=== PATIENT | female | born 1935 | race Caucasian/White ===

== ENCOUNTER 2017-06-26 12:54 | Emergency (ER) | payer MEDICARE | END 2017-06-26 13:42 | disposition left against medical advice (07) | LOC: E/R 12:54 | DX: Z53.21 Procedure and treatment not carried out due to patient leaving prior to being seen by health care provider (principal) ==

== ENCOUNTER 2017-07-26 08:36 | Inpatient (IN) | payer MEDICARE, OTHER ==
[2017-07-26] MEDS: SOD CHLORIDE 0.9% 1,000 ML IV (10:34)
[2017-07-26 11:48] LABS: ABNORMAL IP MESSAGE 1; HEMATOCRIT 35.7 % (37.0-47.0); HEMOGLOBIN 12.3 g/dl (12.0-16.0); MEAN CORPUSCULAR HEMOGLOBIN 29.9 pg (29.0-33.0); MEAN CORPUSCULAR HGB CONC 34.5 g/dl (32.0-37.0); MEAN CORPUSCULAR VOLUME 86.7 fl (82.0-101.0); MEAN PLATELET VOLUME 9.7 fl (7.4-10.4); PLATELET COUNT 392 10^3/UL (140-415); RED BLOOD COUNT 4.12 10^6/ul (4.20-5.40); RED CELL DISTRIBUTION WIDTH 13.2 % (11.5-14.5)
[2017-07-26 11:59] LABS: ADD MAN DIFF? YES; POSITIVE DIFF @See below
[2017-07-26 12:04] LABS: INR 0.97
[2017-07-26 12:05] LABS: PARTIAL THROMBOPLASTIN TIME 26.6 Sec (25.0-35.0)
[2017-07-26 12:14] LABS: ALANINE AMINOTRANSFERASE 34 IU/L (13-69); ALBUMIN 3.1 g/dl (3.3-4.9); ALKALINE PHOSPHATASE 75 IU/L (42-121); ANION GAP 12 (8-16); ASPARTATE AMINO TRANSFERASE 23 IU/L (15-46); BILIRUBIN,INDIRECT 0.1 mg/dl (0-1.1); BILIRUBIN,TOTAL 0.1 mg/dl (0.2-1.3); BLOOD UREA NITROGEN 17 mg/dl (7-20); CALCIUM 8.6 mg/dl (8.4-10.2); CARBON DIOXIDE 26 mmol/L (21-31); CHLORIDE 99 mmol/L (97-110); CREATININE 0.72 mg/dl (0.44-1.00); GLUCOSE 100 mg/dl (70-220); LIPASE 62 U/L (23-300); SODIUM 134 mmol/L (135-144); TOTAL PROTEIN 5.9 g/dl (6.1-8.1)
[2017-07-26 12:26] LABS: TROPONIN-I < 0.012 ng/ml (0.00-0.12)
[2017-07-26 13:20] LABS: BAND NEUTROPHILS #M 3.5 10^3/ul (0.0-0.6); BAND NEUTROPHILS % (M) 69 % (0-4); GIANT THROMBO% (M) 2 % (0-0); LYMPHOCYTES #M 0.3 10^3/ul (0.8-2.9); LYMPHOCYTES % (M) 6 % (15-51); MONOCYTE #M 0.5 10^3/ul (0.3-0.9); MONOCYTES % (M) 11 % (0-11); PLATELET ESTIMATE NORMAL; PLATELET MORPHOLOGY COMMENT @See below; POIKILOCYTOSIS 1+ (0-0); PROMYELOCYTES #M 0.1 10^3/ul (0-0); PROMYELOCYTES % (M) 2 % (0-0); REACTIVE LYMPHOCYTES #M 0.3 10^3/ul (0.0-0.0); REACTIVE LYMPHOCYTES% (M) 6 % (0-0); SEG NEUT #M 0.5 10^3/ul (1.6-7.5); SEGMENTED NEUTROPHILS (M) % 6 % (39-77); SMUDGE%M 5 % (0-0)
[2017-07-26] MEDS ORDERED: ACETAMINOPHEN 325 MG TAB PO (13:30)
[2017-07-26] MEDS ORDERED: ONDANSETRON 4 MG INJ IV (13:30)
[2017-07-26] MEDS: POTASSIUM CHLORIDE 50 ML IVPB (14:59)
[2017-07-26] MEDS ORDERED: NACL 0.9% 3 ML SYG IV (16:00)
[2017-07-26] MEDS: DEXTROSE 5%-0.45% NACL 1,000 ML IV (16:57)
[2017-07-26] MEDS: LORAZEPAM 2 MG INJ IV (18:34)
[2017-07-27] MEDS: morphine 2 MG INJ IV (02:09)
[2017-07-27] MEDS: PANTOPRAZOLE 40 MG INJ IV (05:33)
[2017-07-27 06:23] LABS: HEMATOCRIT 36.4 % (37.0-47.0); HEMOGLOBIN 12.4 g/dl (12.0-16.0); MEAN CORPUSCULAR HEMOGLOBIN 29.8 pg (29.0-33.0); MEAN CORPUSCULAR HGB CONC 34.1 g/dl (32.0-37.0); MEAN CORPUSCULAR VOLUME 87.5 fl (82.0-101.0); MEAN PLATELET VOLUME 9.8 fl (7.4-10.4); PLATELET COUNT 433 10^3/UL (140-415); RED BLOOD COUNT 4.16 10^6/ul (4.20-5.40); RED CELL DISTRIBUTION WIDTH 13.2 % (11.5-14.5)
[2017-07-27 06:23] LABS: WHITE BLOOD COUNT 7.7 10^3/ul (4.8-10.8)
[2017-07-27 06:37] LABS: POSITIVE DIFF @See below
[2017-07-27 06:38] LABS: ADD MAN DIFF? YES
[2017-07-27 06:59] LABS: ALANINE AMINOTRANSFERASE 32 IU/L (13-69); ALBUMIN 3.1 g/dl (3.3-4.9); ALBUMIN/GLOBULIN RATIO 1.14; ALKALINE PHOSPHATASE 73 IU/L (42-121); ANION GAP 13 (8-16); ASPARTATE AMINO TRANSFERASE 27 IU/L (15-46); BILIRUBIN,INDIRECT 0.1 mg/dl (0-1.1); BILIRUBIN,TOTAL 0.1 mg/dl (0.2-1.3); BLOOD UREA NITROGEN 12 mg/dl (7-20); CALCIUM 8.2 mg/dl (8.4-10.2); CARBON DIOXIDE 26 mmol/L (21-31); CHLORIDE 101 mmol/L (97-110); GLUCOSE 115 mg/dl (70-220); MAGNESIUM 1.6 mg/dl (1.7-2.5); PHOSPHORUS 1.7 mg/dl (2.5-4.9); POTASSIUM 3.2 mmol/L (3.5-5.1); SODIUM 137 mmol/L (135-144); TOTAL PROTEIN 5.8 g/dl (6.1-8.1)
[2017-07-27 07:22] LABS: CARCINOEMBRYONIC ANTIGEN 6.1 ng/ml (0.0-5.0)
[2017-07-27] MEDS: DEXTROSE 5%-0.45% NACL 1,000 ML IV ×2 (08:14→10:24)
[2017-07-27] MEDS: ENOXAPARIN 40 MG/0.4 ML SYG SC (08:15)
[2017-07-27] MEDS ORDERED: POTASSIUM CHLORIDE 50 ML IVPB (09:30)
[2017-07-27 10:20] LABS: ANISOCYTOSIS 1+ (0-0); BAND NEUTROPHILS #M 2.3 10^3/ul (0.0-0.6); BAND NEUTROPHILS % (M) 30 % (0-4); BURR CELLS 1+ (0-0); EOSINOPHILS % (M) 1 % (0-7); GIANT THROMBO% (M) 1 % (0-0); LYMPHOCYTES #M 2.6 10^3/ul (0.8-2.9); LYMPHOCYTES % (M) 34 % (15-51); METAMYELOCYTES %M 1 % (0-0); MONOCYTE #M 0.9 10^3/ul (0.3-0.9); MONOCYTES % (M) 12 % (0-11); MYELOCYTES #M 0.1 10^3/ul (0.0-0.0); MYELOCYTES % (M) 2 % (0-0); OVALOCYTES 2+ (0-0); PLATELET ESTIMATE NORMAL; POIKILOCYTOSIS 1+ (0-0); POLYCHROMASIA 1+ (0-0); REACTIVE LYMPHOCYTES #M 0.1 10^3/ul (0.0-0.0); REACTIVE LYMPHOCYTES% (M) 2 % (0-0); SEG NEUT #M 1.6 10^3/ul (1.6-7.5); SEGMENTED NEUTROPHILS (M) % 18 % (39-77); SMUDGE%M 13 % (0-0)
[2017-07-27] MEDS: MAGNESIUM SULFATE 2 GM/50 ML 50 ML IVPB (10:53)
[2017-07-27] MEDS: LORAZEPAM 2 MG INJ IV (12:40)
[2017-07-27] MEDS: POTASSIUM CHLORIDE 40 MEQ in DEXTROSE 5% 250 ML IV (13:14)
[2017-07-28] MEDS: morphine 2 MG INJ IV ×3 (00:18→20:05)
[2017-07-28 05:38] LABS: WHITE BLOOD COUNT 6.8 10^3/ul (4.8-10.8)
[2017-07-28 05:38] LABS: HEMATOCRIT 33.8 % (37.0-47.0); MEAN CORPUSCULAR HEMOGLOBIN 30.2 pg (29.0-33.0); MEAN CORPUSCULAR HGB CONC 35.5 g/dl (32.0-37.0); MEAN CORPUSCULAR VOLUME 85.1 fl (82.0-101.0); MEAN PLATELET VOLUME 9.4 fl (7.4-10.4); PLATELET COUNT 386 10^3/UL (140-415); RED BLOOD COUNT 3.97 10^6/ul (4.20-5.40); RED CELL DISTRIBUTION WIDTH 12.8 % (11.5-14.5)
[2017-07-28 06:13] LABS: POSITIVE DIFF @See below
[2017-07-28 06:14] LABS: ADD MAN DIFF? YES
[2017-07-28 06:16] LABS: BLOOD UREA NITROGEN 12 mg/dl (7-20); CALCIUM 7.2 mg/dl (8.4-10.2); CARBON DIOXIDE 25 mmol/L (21-31); CHLORIDE 100 mmol/L (97-110); CREATININE 0.55 mg/dl (0.44-1.00); GLUCOSE 115 mg/dl (70-220); SODIUM 131 mmol/L (135-144)
[2017-07-28 06:17] LABS: MAGNESIUM 1.7 mg/dl (1.7-2.5)
[2017-07-28 06:17] LABS: PHOSPHORUS 1.9 mg/dl (2.5-4.9)
[2017-07-28] MEDS: PANTOPRAZOLE 40 MG INJ IV (06:21)
[2017-07-28 06:53] LABS: ANION GAP 9 (8-16)
[2017-07-28 07:04] LABS: POTASSIUM 2.7 mmol/L (3.5-5.1)
[2017-07-28 07:07] LABS: WHITE BLOOD COUNT 5.2 10^3/ul (4.8-10.8)
[2017-07-28 07:36] LABS: BAND NEUTROPHILS #M 2.5 10^3/ul (0.0-0.6); BAND NEUTROPHILS % (M) 37 % (0-4); EOSINOPHILS % (M) 1 % (0-7); GIANT THROMBO% (M) 1 % (0-0); LYMPHOCYTES #M 0.8 10^3/ul (0.8-2.9); LYMPHOCYTES % (M) 13 % (15-51); MONOCYTE #M 0.5 10^3/ul (0.3-0.9); MONOCYTES % (M) 8 % (0-11); PLATELET ESTIMATE NORMAL; REACTIVE LYMPHOCYTES #M 0.1 10^3/ul (0.0-0.0); REACTIVE LYMPHOCYTES% (M) 2 % (0-0); SEG NEUT #M 2.8 10^3/ul (1.6-7.5); SEGMENTED NEUTROPHILS (M) % 39 % (39-77); SMUDGE%M 6 % (0-0)
[2017-07-28] MEDS: ENOXAPARIN 40 MG/0.4 ML SYG SC (08:21)
[2017-07-28] MEDS: POTASSIUM PHOSPHATE 15 MM in SOD CHLORIDE 0.9% 250 ML IVPB (08:54)
[2017-07-28] MEDS: DIATR MEGLU/DIATRIZOATE SODIUM 120 ML BTL (12:37)
[2017-07-28 17:21] LABS: ANION GAP 14 (8-16); BLOOD UREA NITROGEN 16 mg/dl (7-20); CALCIUM 8.1 mg/dl (8.4-10.2); CARBON DIOXIDE 24 mmol/L (21-31); CHLORIDE 100 mmol/L (97-110); CREATININE 0.53 mg/dl (0.44-1.00); GLUCOSE 134 mg/dl (70-220); POTASSIUM 3.1 mmol/L (3.5-5.1); SODIUM 135 mmol/L (135-144)
[2017-07-28] MEDS: DEXTROSE 5%-0.45% NACL 1,000 ML IV (17:26)
[2017-07-28] MEDS: CALCIUM GLUCONATE 10% 1 GM in DEXTROSE 5% 100 ML IVPB (17:26)
[2017-07-28 20:10] LABS: ALANINE AMINOTRANSFERASE 31 IU/L (13-69); ALBUMIN 2.8 g/dl (3.3-4.9); ALBUMIN/GLOBULIN RATIO 1.07; ALKALINE PHOSPHATASE 68 IU/L (42-121); ANION GAP 12 (8-16); ASPARTATE AMINO TRANSFERASE 28 IU/L (15-46); BILIRUBIN,INDIRECT 0.1 mg/dl (0-1.1); BILIRUBIN,TOTAL 0.1 mg/dl (0.2-1.3); BLOOD UREA NITROGEN 16 mg/dl (7-20); CALCIUM 8.4 mg/dl (8.4-10.2); CARBON DIOXIDE 26 mmol/L (21-31); CHLORIDE 99 mmol/L (97-110); CREATININE 0.58 mg/dl (0.44-1.00); GLUCOSE 122 mg/dl (70-220); POTASSIUM 3.4 mmol/L (3.5-5.1); SODIUM 134 mmol/L (135-144); TOTAL PROTEIN 5.4 g/dl (6.1-8.1); TRIGLYCERIDES 72 mg/dl (0-149)
[2017-07-28 20:17] LABS: PREALBUMIN 5.8 mg/dl (17.6-36.0)
[2017-07-28] MEDS: TPN 1,000 ML IV (20:43)
[2017-07-29] MEDS: ONDANSETRON 4 MG INJ IV (04:43)
[2017-07-29 05:31] LABS: WHITE BLOOD COUNT 12.8 10^3/ul (4.8-10.8)
[2017-07-29 05:31] LABS: HEMATOCRIT 37.3 % (37.0-47.0); MEAN CORPUSCULAR HGB CONC 34.9 g/dl (32.0-37.0); MEAN CORPUSCULAR VOLUME 85.9 fl (82.0-101.0); MEAN PLATELET VOLUME 9.3 fl (7.4-10.4); PLATELET COUNT 436 10^3/UL (140-415); RED BLOOD COUNT 4.34 10^6/ul (4.20-5.40)
[2017-07-29 05:49] LABS: PHOSPHORUS 2.9 mg/dl (2.5-4.9)
[2017-07-29 05:49] LABS: MAGNESIUM 1.6 mg/dl (1.7-2.5)
[2017-07-29 05:59] LABS: ANION GAP 13 (8-16); BLOOD UREA NITROGEN 18 mg/dl (7-20); CARBON DIOXIDE 27 mmol/L (21-31); CHLORIDE 98 mmol/L (97-110); CREATININE 0.61 mg/dl (0.44-1.00); GLUCOSE 183 mg/dl (70-220); POTASSIUM 3.1 mmol/L (3.5-5.1); SODIUM 135 mmol/L (135-144)
[2017-07-29] MEDS: ACCU-CHEK XX ×4 (06:00→18:00)
[2017-07-29 06:03] LABS: ADD MAN DIFF? YES; POSITIVE DIFF @See below
[2017-07-29] MEDS: PANTOPRAZOLE 40 MG INJ IV (06:15)
[2017-07-29] MEDS ORDERED: POTASSIUM CHLORIDE 50 ML IVPB (07:00)
[2017-07-29] MEDS: POTASSIUM CHLORIDE 40 MEQ in SOD CHLORIDE 0.9% 250 ML IV (07:37)
[2017-07-29 08:35] LABS: BAND NEUTROPHILS #M 6.1 10^3/ul (0.0-0.6); BAND NEUTROPHILS % (M) 48 % (0-4); BURR CELLS 1+ (0-0); LYMPHOCYTES #M 0.6 10^3/ul (0.8-2.9); LYMPHOCYTES % (M) 5 % (15-51); MONOCYTE #M 1.6 10^3/ul (0.3-0.9); MONOCYTES % (M) 13 % (0-11); PLATELET ESTIMATE NORMAL; POIKILOCYTOSIS 2+ (0-0); SEG NEUT #M 5.1 10^3/ul (1.6-7.5); SEGMENTED NEUTROPHILS (M) % 34 % (39-77); SMUDGE%M 2 % (0-0)
[2017-07-29] MEDS: ENOXAPARIN 40 MG/0.4 ML SYG SC (09:31)
[2017-07-29] MEDS: DEXTROSE 5%-0.45% NACL 1,000 ML IV ×2 (10:28→19:02)
[2017-07-29] MEDS: morphine 2 MG INJ IV (12:18)
[2017-07-29] MEDS: MAGNESIUM SULFATE 2 GM/50 ML 50 ML IVPB (12:19)
[2017-07-29] MEDS: TPN 1,000 ML IV (20:44)
[2017-07-30] MEDS: morphine 2 MG INJ IV (04:02)
[2017-07-30] MEDS: PANTOPRAZOLE 40 MG INJ IV (05:42)
[2017-07-30 06:10] LABS: ANION GAP 10 (8-16); BLOOD UREA NITROGEN 20 mg/dl (7-20); CALCIUM 8.1 mg/dl (8.4-10.2); CARBON DIOXIDE 26 mmol/L (21-31); CHLORIDE 101 mmol/L (97-110); CREATININE 0.59 mg/dl (0.44-1.00); GLUCOSE 160 mg/dl (70-220); PHOSPHORUS 1.9 mg/dl (2.5-4.9); POTASSIUM 4.4 mmol/L (3.5-5.1); SODIUM 133 mmol/L (135-144)
[2017-07-30] MEDS: ACCU-CHEK XX ×2 (06:35→18:29)
[2017-07-30] MEDS: ENOXAPARIN 40 MG/0.4 ML SYG SC (09:19)
[2017-07-30] MEDS: SODIUM PHOSPHATE 15 MMOL in SOD CHLORIDE 0.9% 250 ML IV (10:59)
[2017-07-30] MEDS: CLONIDINE 0.1 MG/24 HR PATCH TRANSDERM (11:00)
[2017-07-30] MEDS: TPN 1,000 ML IV (16:24)
[2017-07-30] MEDS: METOCLOPRAMIDE 10 MG INJ IV (17:56)
[2017-07-30] MEDS: SOD CHLORIDE 0.9% 100 ML (20:15)
[2017-07-30] MEDS: IOHEXOL 300MG/ML 150 ML BTL (20:15)
[2017-07-31] MEDS: PANTOPRAZOLE 40 MG INJ IV (05:36)
[2017-07-31] MEDS: ACCU-CHEK XX ×2 (05:42→18:00)
[2017-07-31 06:56] LABS: ANION GAP 12 (8-16); BLOOD UREA NITROGEN 18 mg/dl (7-20); CALCIUM 7.7 mg/dl (8.4-10.2); CARBON DIOXIDE 26 mmol/L (21-31); CHLORIDE 101 mmol/L (97-110); CREATININE 0.53 mg/dl (0.44-1.00); GLUCOSE 138 mg/dl (70-220); MAGNESIUM 1.9 mg/dl (1.7-2.5); PHOSPHORUS 2.8 mg/dl (2.5-4.9); POTASSIUM 3.4 mmol/L (3.5-5.1); SODIUM 136 mmol/L (135-144)
[2017-07-31] MEDS: ENOXAPARIN 40 MG/0.4 ML SYG SC (09:54)
[2017-07-31] MEDS: DIATR MEGLU/DIATRIZOATE SODIUM 120 ML BTL (11:55)
[2017-07-31] MEDS: FAT EMULSION 20% 250 ML IV (17:13)
[2017-07-31] MEDS: POTASSIUM CHLORIDE 20 MEQ in DEXTROSE 5% 250 ML IVPB (18:04)
[2017-07-31] MEDS: TPN 1,000 ML IV (19:47)
[2017-07-31] MEDS: morphine 2 MG INJ IV (21:38)
[2017-08-01] MEDS: ACCU-CHEK XX ×2 (05:08→18:58)
[2017-08-01] MEDS: PANTOPRAZOLE 40 MG INJ IV (05:08)
[2017-08-01 05:36] LABS: HEMATOCRIT 33.6 % (37.0-47.0); HEMOGLOBIN 11.5 g/dl (12.0-16.0); MEAN CORPUSCULAR HEMOGLOBIN 29.3 pg (29.0-33.0); MEAN CORPUSCULAR HGB CONC 34.2 g/dl (32.0-37.0); MEAN CORPUSCULAR VOLUME 85.5 fl (82.0-101.0); PLATELET COUNT 294 10^3/UL (140-415); RED BLOOD COUNT 3.93 10^6/ul (4.20-5.40); RED CELL DISTRIBUTION WIDTH 13.2 % (11.5-14.5)
[2017-08-01 05:36] LABS: WHITE BLOOD COUNT 9.9 10^3/ul (4.8-10.8)
[2017-08-01 05:48] LABS: POSITIVE DIFF @See below
[2017-08-01 05:53] LABS: ADD MAN DIFF? YES
[2017-08-01 05:59] LABS: ALANINE AMINOTRANSFERASE 25 IU/L (13-69); ALBUMIN 2.5 g/dl (3.3-4.9); ALBUMIN/GLOBULIN RATIO 0.89; ALKALINE PHOSPHATASE 67 IU/L (42-121); ANION GAP 7 (8-16); ASPARTATE AMINO TRANSFERASE 18 IU/L (15-46); BLOOD UREA NITROGEN 15 mg/dl (7-20); CALCIUM 7.8 mg/dl (8.4-10.2); CARBON DIOXIDE 26 mmol/L (21-31); CHLORIDE 101 mmol/L (97-110); CREATININE 0.46 mg/dl (0.44-1.00); GLUCOSE 128 mg/dl (70-220); POTASSIUM 3.4 mmol/L (3.5-5.1); SODIUM 131 mmol/L (135-144); TOTAL PROTEIN 5.3 g/dl (6.1-8.1)
[2017-08-01 06:03] LABS: MAGNESIUM 1.7 mg/dl (1.7-2.5)
[2017-08-01 06:03] LABS: PHOSPHORUS 2.4 mg/dl (2.5-4.9)
[2017-08-01] MEDS: hydrALAzine 20 MG INJ IV ×2 (08:57→16:40)
[2017-08-01] MEDS: ENOXAPARIN 40 MG/0.4 ML SYG SC (09:00)
[2017-08-01 09:08] LABS: BAND NEUTROPHILS #M 2.7 10^3/ul (0.0-0.6); BAND NEUTROPHILS % (M) 28 % (0-4); LYMPHOCYTES #M 0.5 10^3/ul (0.8-2.9); LYMPHOCYTES % (M) 6 % (15-51); MONOCYTE #M 0.6 10^3/ul (0.3-0.9); MONOCYTES % (M) 7 % (0-11); PLATELET ESTIMATE NORMAL; POIKILOCYTOSIS 1+ (0-0); SEG NEUT #M 6.1 10^3/ul (1.6-7.5); SEGMENTED NEUTROPHILS (M) % 59 % (39-77); SMUDGE%M 6 % (0-0)
[2017-08-01] MEDS ORDERED: POTASSIUM CHLORIDE 50 ML IVPB (11:00)
[2017-08-01] MEDS: TPN 1,000 ML IV (12:36)
[2017-08-01] MEDS: POTASSIUM CHLORIDE 40 MEQ in DEXTROSE 5% 250 ML IV (14:19)
[2017-08-01] MEDS: FAT EMULSION 20% 250 ML IV (16:22)
[2017-08-01] MEDS: morphine 2 MG INJ IV (21:48)
[2017-08-02] MEDS: morphine 2 MG INJ IV (02:16)
[2017-08-02] MEDS: TPN 1,000 ML IV ×3 (03:25→21:05)
[2017-08-02] MEDS: PANTOPRAZOLE 40 MG INJ IV (05:37)
[2017-08-02] MEDS: ACCU-CHEK XX ×2 (05:42→18:08)
[2017-08-02 06:32] LABS: ANION GAP 10 (8-16); BLOOD UREA NITROGEN 16 mg/dl (7-20); CALCIUM 7.5 mg/dl (8.4-10.2); CARBON DIOXIDE 23 mmol/L (21-31); CHLORIDE 103 mmol/L (97-110); CREATININE 0.46 mg/dl (0.44-1.00); GLUCOSE 131 mg/dl (70-220); MAGNESIUM 1.7 mg/dl (1.7-2.5); PHOSPHORUS 2.3 mg/dl (2.5-4.9); POTASSIUM 3.5 mmol/L (3.5-5.1); SODIUM 132 mmol/L (135-144)
[2017-08-02] MEDS: ENOXAPARIN 40 MG/0.4 ML SYG SC (08:18)
[2017-08-02] MEDS: hydrALAzine 20 MG INJ IV (08:21)
[2017-08-02] MEDS: FAT EMULSION 20% 250 ML IV (16:08)
[2017-08-02] MEDS: NA PHOSPHATE/BIPHOS 133 ML ENEMA PR ×2 (18:38→19:53)
[2017-08-03] MEDS: PANTOPRAZOLE 40 MG INJ IV (04:55)
[2017-08-03 05:34] LABS: HEMATOCRIT 30.1 % (37.0-47.0); HEMOGLOBIN 10.7 g/dl (12.0-16.0); MEAN CORPUSCULAR HEMOGLOBIN 29.9 pg (29.0-33.0); MEAN CORPUSCULAR HGB CONC 35.5 g/dl (32.0-37.0); MEAN CORPUSCULAR VOLUME 84.1 fl (82.0-101.0); MEAN PLATELET VOLUME 8.9 fl (7.4-10.4); PLATELET COUNT 245 10^3/UL (140-415); RED BLOOD COUNT 3.58 10^6/ul (4.20-5.40); RED CELL DISTRIBUTION WIDTH 13.2 % (11.5-14.5)
[2017-08-03 05:34] LABS: WHITE BLOOD COUNT 8.1 10^3/ul (4.8-10.8)
[2017-08-03 05:48] LABS: POSITIVE DIFF @See below
[2017-08-03 05:49] LABS: ADD MAN DIFF? YES
[2017-08-03] MEDS: ACCU-CHEK XX ×2 (06:00→18:40)
[2017-08-03 06:13] LABS: PHOSPHORUS 2.9 mg/dl (2.5-4.9)
[2017-08-03 06:13] LABS: MAGNESIUM 1.6 mg/dl (1.7-2.5)
[2017-08-03 06:15] LABS: ANION GAP 10 (8-16); BLOOD UREA NITROGEN 16 mg/dl (7-20); CALCIUM 7.7 mg/dl (8.4-10.2); CARBON DIOXIDE 25 mmol/L (21-31); CHLORIDE 100 mmol/L (97-110); CREATININE 0.48 mg/dl (0.44-1.00); GLUCOSE 144 mg/dl (70-220); POTASSIUM 3.2 mmol/L (3.5-5.1); SODIUM 132 mmol/L (135-144)
[2017-08-03 06:31] LABS: BASOPHILS % 0.2 % (0.0-2.0)
[2017-08-03 07:46] LABS: ANISOCYTOSIS 1+ (0-0); BAND NEUTROPHILS #M 2.1 10^3/ul (0.0-0.6); BAND NEUTROPHILS % (M) 26 % (0-4); BURR CELLS 1+ (0-0); LYMPHOCYTES #M 0.4 10^3/ul (0.8-2.9); LYMPHOCYTES % (M) 5 % (15-51); MONOCYTE #M 0.9 10^3/ul (0.3-0.9); MONOCYTES % (M) 12 % (0-11); MYELOCYTES % (M) 1 % (0-0); PLATELET ESTIMATE NORMAL; POIKILOCYTOSIS 1+ (0-0); POLYCHROMASIA 2+ (0-0); REACTIVE LYMPHOCYTES #M 0.1 10^3/ul (0.0-0.0); REACTIVE LYMPHOCYTES% (M) 2 % (0-0); SEG NEUT #M 4.5 10^3/ul (1.6-7.5); SEGMENTED NEUTROPHILS (M) % 54 % (39-77); SMUDGE%M 18 % (0-0)
[2017-08-03] MEDS: ENOXAPARIN 40 MG/0.4 ML SYG SC (10:07)
[2017-08-03] MEDS ORDERED: POTASSIUM CHLORIDE 50 ML IVPB (11:30)
[2017-08-03] MEDS: POTASSIUM CHLORIDE 100 ML IVPB ×2 (11:54→14:12)
[2017-08-03] MEDS: TPN 1,000 ML IV (12:05)
[2017-08-03] MEDS: NA PHOSPHATE/BIPHOS 133 ML ENEMA PR ×7 (15:34→18:26)
[2017-08-03] MEDS: FAT EMULSION 20% 250 ML IV (16:27)
[2017-08-04] MEDS: TPN 1,000 ML IV ×2 (05:23→22:30)
[2017-08-04 05:41] LABS: ALANINE AMINOTRANSFERASE 36 IU/L (13-69); ALBUMIN 2.5 g/dl (3.3-4.9); ALBUMIN/GLOBULIN RATIO 0.89; ALKALINE PHOSPHATASE 62 IU/L (42-121); ANION GAP 12 (8-16); ASPARTATE AMINO TRANSFERASE 21 IU/L (15-46); BLOOD UREA NITROGEN 16 mg/dl (7-20); CALCIUM 7.8 mg/dl (8.4-10.2); CARBON DIOXIDE 25 mmol/L (21-31); CHLORIDE 99 mmol/L (97-110); CREATININE 0.47 mg/dl (0.44-1.00); GLUCOSE 138 mg/dl (70-220); POTASSIUM 3.6 mmol/L (3.5-5.1); SODIUM 132 mmol/L (135-144); TOTAL PROTEIN 5.3 g/dl (6.1-8.1)
[2017-08-04 05:44] LABS: PREALBUMIN 11.6 mg/dl (17.6-36.0)
[2017-08-04] MEDS: PANTOPRAZOLE 40 MG INJ IV (05:47)
[2017-08-04] MEDS: ACCU-CHEK XX ×2 (06:05→17:27)
[2017-08-04] MEDS: ENOXAPARIN 40 MG/0.4 ML SYG SC (09:18)
[2017-08-04] MEDS: NA PHOSPHATE/BIPHOS 133 ML ENEMA PR ×6 (13:58→15:30)
[2017-08-04] MEDS: FAT EMULSION 20% 250 ML IV (16:18)
[2017-08-04] MEDS: morphine 2 MG INJ IV (19:04)
[2017-08-05] MEDS: ACCU-CHEK XX (06:00)
[2017-08-05] MEDS: PANTOPRAZOLE 40 MG INJ IV (06:53)
[2017-08-05] MEDS ORDERED: ALBUMIN HUMAN 5% 250 ML INJ (07:00)
[2017-08-05] MEDS ORDERED: SUCCINYLCHOLINE CHLORIDE 100 MG/5 ML SYG IV (07:00)
[2017-08-05] MEDS: ENOXAPARIN 40 MG/0.4 ML SYG SC (09:41)
[2017-08-05] MEDS ORDERED: IOHEXOL 300MG/ML 30 ML BTL (14:16)
[2017-08-05] MEDS ORDERED: FENTAnyl 50 MCG/ML VIAL (15:16)
[2017-08-05] MEDS ORDERED: PROPOFOL 20 ML ×2 (15:16→16:57)
[2017-08-05] MEDS ORDERED: ESMOLOL 10 ML (15:43)
[2017-08-05] MEDS ORDERED: PHENYLephrine (100 MCG/ML) 5ML SYG ×6 (15:58→20:07)
[2017-08-05] MEDS: FAT EMULSION 20% 250 ML IV (16:00)
[2017-08-05] MEDS: TPN 1,000 ML IV ×2 (16:00)
[2017-08-05] MEDS ORDERED: MIDAZOLAM 1 MG/ML 2 ML INJ (16:07)
[2017-08-05] MEDS ORDERED: LEVOFLOXACIN 500MG/D5W (PMX) 100 ML IVPB (17:00)
[2017-08-05] MEDS ORDERED: LABETALOL HCL 20MG INJ (17:17)
[2017-08-05] MEDS ORDERED: HYDROmorphONE (0.2 MG/ML) 10ML SYG IV ×3 (17:18→17:30)
[2017-08-05] MEDS ORDERED: PHENYLephrine 40 MG in DEXTROSE 5% 496 ML IV (17:28)
[2017-08-05] MEDS: HYDROmorphONE (0.2 MG/ML) 10ML SYG IV (18:10)
[2017-08-05] MEDS: LABETALOL HCL 20MG INJ IV (18:10)
[2017-08-05] MEDS ORDERED: ALBUMIN HUMAN 25% 200 ML (18:47)
[2017-08-05] MEDS ORDERED: PIPER-TAZO 3.375 GM IV (PMX) 100 ML (18:56)
[2017-08-05] MEDS: FLUCONAZOLE 400 MG/NS (PMX) 200 ML IVPB ×2 (19:30→23:00)
[2017-08-05 19:32] LABS: AADO2 Arterial 366.8 mmHg (7.0-24.0); Arterial Base Excess -6.1 mmol/L (-3.0-3); Arterial Blood Gas Oxygen Sat 99.2 mmHG (95.0-100.0); Arterial COHb 0.3 % (0.0-3.0); Arterial Fraction of Oxyhgb 98.8 % (93.0-99.0); Arterial HCO3 19.8 mmol/L (22.0-26.0); Arterial MetHb 0.1 % (0.0-1.5); Arterial Total Hemglobin 10.4 g/dl (12.0-18.0); Arterial pCO2 40.6 mmhg (35-45); Blood Gas Low PEEP Setting 0 cmH2O; MODE VENT - AC; Site A-Line
[2017-08-05] MEDS ORDERED: METOCLOPRAMIDE 10 MG INJ (19:41)
[2017-08-05] MEDS ORDERED: DEXAMETHASONE 4 MG/ML 1 ML INJ (19:41)
[2017-08-05] MEDS ORDERED: ONDANSETRON 4 MG INJ (19:41)
[2017-08-05] MEDS ORDERED: metroNIDAZOLE 500 MG/NS (PMX) 100 ML IVPB (19:49)
[2017-08-05] MEDS ORDERED: ACETAMINOPHEN 1000MG/100ML IV 100 ML (19:49)
[2017-08-05] MEDS ORDERED: ROCURONIUM 50 MG INJ (19:49)
[2017-08-05] MEDS ORDERED: FUROSEMIDE 20 MG INJ (20:27)
[2017-08-05] MEDS: PROPOFOL 100 ML IV ×3 (21:00→22:48)
[2017-08-05] MEDS ORDERED: hydrALAzine 20 MG INJ IV (21:00)
[2017-08-05] MEDS ORDERED: FENTAnyl 50 MCG/ML VIAL IV ×3 (21:00)
[2017-08-05] MEDS ORDERED: ONDANSETRON 4 MG INJ IV ×2 (21:00→21:30)
[2017-08-05] MEDS ORDERED: HYDROmorphONE 1 MG/ML SYG IV (21:00)
[2017-08-05] MEDS ORDERED: DIPHENHYDRAMINE 50 MG INJ IV (21:00)
[2017-08-05] MEDS ORDERED: MEPERIDINE 25 MG INJ IV (21:00)
[2017-08-05] MEDS ORDERED: ALBUMIN HUMAN 5% 250 ML IV (21:00)
[2017-08-05] MEDS ORDERED: LABETALOL HCL 20MG INJ IV (21:00)
[2017-08-05] MEDS ORDERED: HYDROmorphONE 0.5 MG/0.5 ML SYG IV ×2 (21:00)
[2017-08-05] MEDS ORDERED: EPHEDrine SULFATE 50 MG/5 ML SYG IV (21:00)
[2017-08-05] MEDS: PHENYLephrine 20MG IN 250 ML 250 ML IV (22:47)
[2017-08-05] MEDS: metroNIDAZOLE 500 MG/NS (PMX) 100 ML IVPB ×2 (23:00)
[2017-08-05 23:30] LABS: ADD UMIC YES; UR ASCORBIC ACID NEGATIVE (NEGATIVE); UR BILIRUBIN (Dip) NEGATIVE (NEGATIVE); UR BLOOD (Dip) 2+ mg/dL (NEGATIVE); UR CLARITY CLEAR (CLEAR); UR COLOR YELLOW (YELLOW); UR GLUCOSE (Dip) NEGATIVE (NEGATIVE); UR KETONES (Dip) NEGATIVE (NEGATIVE); UR LEUKOCYTE ESTERASE (Dip) NEGATIVE Leu/ul (NEGATIVE); UR NITRITE (Dip) NEGATIVE (NEGATIVE); UR RBC 8 /HPF (0-5); UR SPECIFIC GRAVITY (Dip) 1.006 (1.003-1.030); UR TOTAL PROTEIN (Dip) NEGATIVE (NEGATIVE); UR UROBILINOGEN (Dip) NEGATIVE (NEGATIVE); UR WBC 1 /HPF (0-5)
[2017-08-05 23:57] LABS: Arterial Base Excess -7.7 mmol/L (-3.0-3); Arterial Blood Gas Oxygen Sat 97.1 mmHG (95.0-100.0); Arterial COHb 0.3 % (0.0-3.0); Arterial Fraction of Oxyhgb 96.7 % (93.0-99.0); Arterial HCO3 16.9 mmol/L (22.0-26.0); Arterial MetHb 0.1 % (0.0-1.5); Arterial Total Hemglobin 9.9 g/dl (12.0-18.0); Arterial pCO2 31.2 mmhg (35-45); MODE VENT - AC; Site A-Line
[2017-08-06] MEDS: PIPER-TAZO 3.375 GM IV (PMX) 100 ML IVPB ×4 (00:05→21:29)
[2017-08-06 00:29] LABS: WHITE BLOOD COUNT 4.6 10^3/ul (4.8-10.8)
[2017-08-06 00:29] LABS: ABNORMAL IP MESSAGE 1; HEMATOCRIT 24.7 % (37.0-47.0); HEMOGLOBIN 8.6 g/dl (12.0-16.0); MEAN CORPUSCULAR HEMOGLOBIN 30.2 pg (29.0-33.0); MEAN CORPUSCULAR HGB CONC 34.8 g/dl (32.0-37.0); MEAN CORPUSCULAR VOLUME 86.7 fl (82.0-101.0); MEAN PLATELET VOLUME 10.8 fl (7.4-10.4); NUCLEATED RED BLOOD CELLS% 0.6 /100WBC (0.0-0.0); PLATELET COUNT 170 10^3/UL (140-415); RED BLOOD COUNT 2.85 10^6/ul (4.20-5.40); RED CELL DISTRIBUTION WIDTH 13.6 % (11.5-14.5)
[2017-08-06 00:35] LABS: PARTIAL THROMBOPLASTIN TIME 61.9 Sec (25.0-35.0)
[2017-08-06 00:40] LABS: ALANINE AMINOTRANSFERASE 30 IU/L (13-69); ALBUMIN 1.4 g/dl (3.3-4.9); ALBUMIN/GLOBULIN RATIO 1.27; ALKALINE PHOSPHATASE 28 IU/L (42-121); ANION GAP 14 (8-16); ASPARTATE AMINO TRANSFERASE 29 IU/L (15-46); BLOOD UREA NITROGEN 16 mg/dl (7-20); CARBON DIOXIDE 17 mmol/L (21-31); CHLORIDE 109 mmol/L (97-110); CREATININE 0.51 mg/dl (0.44-1.00); GLUCOSE 87 mg/dl (70-220); MAGNESIUM 1.1 mg/dl (1.7-2.5); PHOSPHORUS 4.2 mg/dl (2.5-4.9); POTASSIUM 4.7 mmol/L (3.5-5.1); SODIUM 135 mmol/L (135-144); TOTAL PROTEIN 2.5 g/dl (6.1-8.1)
[2017-08-06 01:06] LABS: POSITIVE DIFF @See below
[2017-08-06 01:07] LABS: ADD MAN DIFF? YES
[2017-08-06 01:22] LABS: CALCIUM 5.8 mg/dl (8.4-10.2)
[2017-08-06 01:23] LABS: LACTIC ACID 4.6 mmol/L (0.5-2.0)
[2017-08-06 02:11] LABS: BAND NEUTROPHILS #M 1.7 10^3/ul (0.0-0.6); BAND NEUTROPHILS % (M) 38 % (0-4); EOSINOPHILS % (M) 1 % (0-7); ERYTHROBLAST% (NRBC) (M) 8 % (0-0); GIANT THROMBO% (M) 21 % (0-0); LYMPHOCYTES #M 1.1 10^3/ul (0.8-2.9); LYMPHOCYTES % (M) 25 % (15-51); MONOCYTE #M 0.2 10^3/ul (0.3-0.9); MONOCYTES % (M) 5 % (0-11); MYELOCYTES #M 0.1 10^3/ul (0.0-0.0); MYELOCYTES % (M) 4 % (0-0); PLATELET ESTIMATE NORMAL; POIKILOCYTOSIS 3+ (0-0); REACTIVE LYMPHOCYTES #M 0.3 10^3/ul (0.0-0.0); REACTIVE LYMPHOCYTES% (M) 7 % (0-0); SEGMENTED NEUTROPHILS (M) % 20 % (39-77); SMUDGE%M 43 % (0-0)
[2017-08-06] MEDS ORDERED: NORepinephrine 8MG/250 ML (PMX 250 ML IV (02:30)
[2017-08-06] MEDS: PHENYLephrine 40 MG in DEXTROSE 5% 496 ML IV ×2 (02:39→06:02)
[2017-08-06 05:49] LABS: ABNORMAL IP MESSAGE 1; HEMATOCRIT 31.1 % (37.0-47.0); HEMOGLOBIN 10.6 g/dl (12.0-16.0); MEAN CORPUSCULAR HEMOGLOBIN 29.6 pg (29.0-33.0); MEAN CORPUSCULAR HGB CONC 34.1 g/dl (32.0-37.0); MEAN CORPUSCULAR VOLUME 86.9 fl (82.0-101.0); NUCLEATED RED BLOOD CELLS% 0.2 /100WBC (0.0-0.0); PLATELET COUNT 143 10^3/UL (140-415); RED BLOOD COUNT 3.58 10^6/ul (4.20-5.40); RED CELL DISTRIBUTION WIDTH 13.6 % (11.5-14.5)
[2017-08-06 05:53] LABS: POSITIVE DIFF @See below
[2017-08-06 05:54] LABS: ADD MAN DIFF? YES
[2017-08-06 05:58] LABS: ALANINE AMINOTRANSFERASE 37 IU/L (13-69); ALBUMIN 1.3 g/dl (3.3-4.9); ALKALINE PHOSPHATASE 30 IU/L (42-121); ANION GAP 9 (8-16); ASPARTATE AMINO TRANSFERASE 38 IU/L (15-46); BILIRUBIN,TOTAL 0.2 mg/dl (0.2-1.3); BLOOD UREA NITROGEN 16 mg/dl (7-20); CARBON DIOXIDE 17 mmol/L (21-31); CHLORIDE 109 mmol/L (97-110); CREATININE 0.63 mg/dl (0.44-1.00); GLUCOSE 237 mg/dl (70-220); POTASSIUM 4.1 mmol/L (3.5-5.1); SODIUM 131 mmol/L (135-144); TOTAL PROTEIN 2.6 g/dl (6.1-8.1)
[2017-08-06] MEDS: PANTOPRAZOLE (EC) 40 MG TAB PO (06:00)
[2017-08-06] MEDS: PANTOPRAZOLE 40 MG INJ IV (06:00)
[2017-08-06] MEDS: PROPOFOL 100 ML IV ×2 (06:00→18:00)
[2017-08-06] MEDS: ACCU-CHEK XX ×2 (06:00→18:04)
[2017-08-06 06:02] LABS: CALCIUM 5.3 mg/dl (8.4-10.2)
[2017-08-06 06:03] LABS: ANION GAP 10 (8-16); BLOOD UREA NITROGEN 16 mg/dl (7-20); CARBON DIOXIDE 17 mmol/L (21-31); CHLORIDE 108 mmol/L (97-110); CREATININE 0.61 mg/dl (0.44-1.00); GLUCOSE 242 mg/dl (70-220); MAGNESIUM 1.1 mg/dl (1.7-2.5); PHOSPHORUS 3.5 mg/dl (2.5-4.9); POTASSIUM 4.2 mmol/L (3.5-5.1); SODIUM 131 mmol/L (135-144)
[2017-08-06] MEDS: metroNIDAZOLE 500 MG/NS (PMX) 100 ML IVPB ×3 (06:09→21:29)
[2017-08-06 06:21] LABS: CALCIUM 5.4 mg/dl (8.4-10.2)
[2017-08-06] MEDS: TPN 1,000 ML IV ×3 (07:25→16:00)
[2017-08-06] MEDS: ENOXAPARIN 40 MG/0.4 ML SYG SC (09:00)
[2017-08-06] MEDS ORDERED: PHENYLephrine 20MG IN 250 ML 250 ML (09:03)
[2017-08-06] MEDS: ALBUMIN HUMAN 25% 100 ML IV (09:12)
[2017-08-06] MEDS: CLONIDINE 0.1 MG/24 HR PATCH TRANSDERM (09:14)
[2017-08-06] MEDS: PHENYLephrine 160 MG in DEXTROSE 5% 484 ML IV (10:26)
[2017-08-06 10:56] LABS: ANISOCYTOSIS 1+ (0-0); BAND NEUTROPHILS #M 7.9 10^3/ul (0.0-0.6); BAND NEUTROPHILS % (M) 72 % (0-4); BURR CELLS 3+ (0-0); ERYTHROBLAST% (NRBC) (M) 1 % (0-0); GIANT THROMBO% (M) 11 % (0-0); LYMPHOCYTES #M 0.3 10^3/ul (0.8-2.9); LYMPHOCYTES % (M) 3 % (15-51); METAMYELOCYTES #M 0.7 10^3/ul (0.0-0.0); METAMYELOCYTES %M 7 % (0-0); MONOCYTE #M 0.4 10^3/ul (0.3-0.9); MONOCYTES % (M) 4 % (0-11); MYELOCYTES #M 0.5 10^3/ul (0.0-0.0); MYELOCYTES % (M) 5 % (0-0); OVALOCYTES 1+ (0-0); PLASMA CELLS #M 0.1 10^3/ul (0.0-0.0); PLASMAC%(M) 1 % (0); PLATELET ESTIMATE DECREASED; PLATELET MORPHOLOGY COMMENT @See below; POIKILOCYTOSIS 3+ (0-0); POLYCHROMASIA 1+ (0-0); REACTIVE LYMPHOCYTES #M 0.2 10^3/ul (0.0-0.0); REACTIVE LYMPHOCYTES% (M) 2 % (0-0); SEG NEUT #M 1.5 10^3/ul (1.6-7.5); SEGMENTED NEUTROPHILS (M) % 6 % (39-77); SMUDGE%M 2 % (0-0)
[2017-08-06] MEDS: CALCIUM GLUCONATE 10% 2 GM in DEXTROSE 5% 100 ML IVPB (14:13)
[2017-08-06] MEDS: FAT EMULSION 20% 250 ML IV ×2 (16:00→21:35)
[2017-08-06] MEDS ORDERED: MAGNESIUM SULFATE 2 GM/50 ML (18:09)
[2017-08-06] MEDS: MAGNESIUM SULFATE 4 GM/100 ML 100 ML IVPB (19:11)
[2017-08-06] MEDS: morphine 2 MG INJ IV (23:45)
[2017-08-06] MEDS: FLUCONAZOLE 400 MG/NS (PMX) 200 ML IVPB (23:46)
[2017-08-07] MEDS: morphine 2 MG INJ IV ×2 (05:24→10:41)
[2017-08-07] MEDS: PHENYLephrine 160 MG in DEXTROSE 5% 484 ML IV (05:43)
[2017-08-07] MEDS: NORepinephrine 32 MG in DEXTROSE 5% 218 ML IV (05:44)
[2017-08-07] MEDS: metroNIDAZOLE 500 MG/NS (PMX) 100 ML IVPB ×3 (05:50→21:15)
[2017-08-07] MEDS: PANTOPRAZOLE (EC) 40 MG TAB PO (05:50)
[2017-08-07] MEDS: PIPER-TAZO 3.375 GM IV (PMX) 100 ML IVPB ×2 (05:50→14:28)
[2017-08-07] MEDS: ACCU-CHEK XX (06:00)
[2017-08-07 06:16] LABS: ALANINE AMINOTRANSFERASE 37 IU/L (13-69); ALBUMIN 1.8 g/dl (3.3-4.9); ALBUMIN/GLOBULIN RATIO 1.05; ALKALINE PHOSPHATASE 35 IU/L (42-121); ANION GAP 18 (8-16); ASPARTATE AMINO TRANSFERASE 33 IU/L (15-46); BLOOD UREA NITROGEN 23 mg/dl (7-20); CALCIUM 6.4 mg/dl (8.4-10.2); CHLORIDE 105 mmol/L (97-110); CREATININE 1.18 mg/dl (0.44-1.00); GLUCOSE 181 mg/dl (70-220); MAGNESIUM 2.6 mg/dl (1.7-2.5); POTASSIUM 4.8 mmol/L (3.5-5.1); SODIUM 127 mmol/L (135-144); TOTAL PROTEIN 3.5 g/dl (6.1-8.1)
[2017-08-07 06:21] LABS: CARBON DIOXIDE 9 mmol/L (21-31)
[2017-08-07] MEDS: PROPOFOL 100 ML IV ×2 (07:18→18:00)
[2017-08-07 08:00] LABS: WHITE BLOOD COUNT 38.1 10^3/ul (4.8-10.8)
[2017-08-07 08:00] LABS: ABNORMAL IP MESSAGE 1; HEMATOCRIT 22.3 % (37.0-47.0); MEAN CORPUSCULAR HEMOGLOBIN 31.5 pg (29.0-33.0); MEAN CORPUSCULAR HGB CONC 35.9 g/dl (32.0-37.0); MEAN CORPUSCULAR VOLUME 87.8 fl (82.0-101.0); NUCLEATED RED BLOOD CELLS% 0.3 /100WBC (0.0-0.0); RED BLOOD COUNT 2.54 10^6/ul (4.20-5.40); RED CELL DISTRIBUTION WIDTH 14.4 % (11.5-14.5)
[2017-08-07 08:08] LABS: POSITIVE DIFF @See below
[2017-08-07 08:09] LABS: MEAN PLATELET VOLUME 11.9 fl (7.4-10.4); PLATELET COUNT 142 10^3/UL (140-415)
[2017-08-07 08:10] LABS: ADD MAN DIFF? YES
[2017-08-07 09:24] LABS: BAND NEUTROPHILS #M 9.5 10^3/ul (0.0-0.6); BAND NEUTROPHILS % (M) 25 % (0-4); ERYTHROBLAST% (NRBC) (M) 1 % (0-0); SEGMENTED NEUTROPHILS (M) % 75 % (39-77)
[2017-08-07 09:28] LABS: ANISOCYTOSIS 1+ (0-0); POIKILOCYTOSIS 1+ (0-0)
[2017-08-07 09:31] LABS: BURR CELLS 3+
[2017-08-07] MEDS: TPN 1,000 ML IV ×2 (09:31→16:45)
[2017-08-07] MEDS: ALBUMIN HUMAN 25% 100 ML IV (09:32)
[2017-08-07] MEDS: ENOXAPARIN 40 MG/0.4 ML SYG SC (09:32)
[2017-08-07 10:00] LABS: HEMOGLOBIN A1C 5.9 % (0-5.9)
[2017-08-07] MEDS ORDERED: DEXTROSE 50% 50 ML SYRINGE IV ×2 (10:00)
[2017-08-07] MEDS ORDERED: GLUCOSE GEL 15 GRAM TUBE BUCCAL (10:00)
[2017-08-07] MEDS ORDERED: GLUCOSE GEL 15 GRAM TUBE PO ×2 (10:00)
[2017-08-07] MEDS ORDERED: GLUCAGON 1 MG INJ IM (10:00)
[2017-08-07] MEDS: NA BICARBONATE 8.4% 50 ML SYG IV (10:27)
[2017-08-07 11:25] LABS: AADO2 Arterial 159.2 mmHg (7.0-24.0); Allen Test ACCEPTAB; Arterial Base Excess 1.3 mmol/L (-3.0-3); Arterial Blood Gas Oxygen Sat 96.2 mmHG (95.0-100.0); Arterial COHb 0.5 % (0.0-3.0); Arterial Fraction of Oxyhgb 95.2 % (93.0-99.0); Arterial HCO3 24.8 mmol/L (22.0-26.0); Arterial MetHb 0.5 % (0.0-1.5); Arterial Total Hemglobin 6.7 g/dl (12.0-18.0); Arterial pCO2 33.7 mmhg (35-45); Blood Gas Low PEEP Setting 0 cmH2O; MODE VENT - AC; Site Right Radial
[2017-08-07] MEDS: CASPOFUNGIN 50 MG in SOD CHLORIDE 0.9% 250 ML IVPB (11:40)
[2017-08-07] MEDS ORDERED: SODIUM BICARBONATE (IV ADD) 100 MEQ in DEXTROSE 5% 1,000 ML IV (12:00)
[2017-08-07] MEDS: INSULIN ASPART [NOVOLOG] 3 ML PEN SC ×3 (13:14→21:00)
[2017-08-07 17:17] LABS: ALANINE AMINOTRANSFERASE 39 IU/L (13-69); ALBUMIN/GLOBULIN RATIO 1.17; ALKALINE PHOSPHATASE 51 IU/L (42-121); ANION GAP 12 (8-16); ASPARTATE AMINO TRANSFERASE 22 IU/L (15-46); BILIRUBIN,INDIRECT 0.1 mg/dl (0-1.1); BILIRUBIN,TOTAL 0.2 mg/dl (0.2-1.3); BLOOD UREA NITROGEN 25 mg/dl (7-20); CALCIUM 7.3 mg/dl (8.4-10.2); CARBON DIOXIDE 25 mmol/L (21-31); CHLORIDE 104 mmol/L (97-110); CREATININE 1.38 mg/dl (0.44-1.00); GLUCOSE 127 mg/dl (70-220); POTASSIUM 3.7 mmol/L (3.5-5.1); SODIUM 137 mmol/L (135-144); TOTAL PROTEIN 3.7 g/dl (6.1-8.1)
[2017-08-07] MEDS: PIPER-TAZO 2.25 GM (PMX) 50 ML IVPB (22:50)
[2017-08-08] MEDS: INSULIN ASPART [NOVOLOG] 3 ML PEN SC ×6 (01:16→21:00)
[2017-08-08] MEDS: ACCU-CHEK XX (02:00)
[2017-08-08] MEDS: metroNIDAZOLE 500 MG/NS (PMX) 100 ML IVPB ×2 (05:15→14:06)
[2017-08-08] MEDS: PANTOPRAZOLE (EC) 40 MG TAB PO (05:19)
[2017-08-08] MEDS: PIPER-TAZO 2.25 GM (PMX) 50 ML IVPB ×2 (05:19→14:06)
[2017-08-08] MEDS: TPN 1,000 ML IV ×3 (07:00→20:00)
[2017-08-08] MEDS: PROPOFOL 100 ML IV ×2 (07:00→18:00)
[2017-08-08 07:10] LABS: ANION GAP 9 (8-16); BLOOD UREA NITROGEN 26 mg/dl (7-20); CALCIUM 7.7 mg/dl (8.4-10.2); CARBON DIOXIDE 28 mmol/L (21-31); CHLORIDE 105 mmol/L (97-110); CREATININE 1.26 mg/dl (0.44-1.00); GLUCOSE 125 mg/dl (70-220); MAGNESIUM 2.6 mg/dl (1.7-2.5); PHOSPHORUS 3.5 mg/dl (2.5-4.9); POTASSIUM 3.1 mmol/L (3.5-5.1); SODIUM 139 mmol/L (135-144)
[2017-08-08 07:12] LABS: TRIGLYCERIDES 72 mg/dl (0-149)
[2017-08-08] MEDS: ALBUMIN HUMAN 25% 100 ML IV (08:26)
[2017-08-08] MEDS: ENOXAPARIN 30 MG/0.3 ML SYG SC (08:28)
[2017-08-08 10:13] LABS: Arterial Base Excess 2.9 mmol/L (-3.0-3); Arterial Blood Gas Oxygen Sat 97.2 mmHG (95.0-100.0); Arterial COHb 1.1 % (0.0-3.0); Arterial Fraction of Oxyhgb 95.9 % (93.0-99.0); Arterial HCO3 26.3 mmol/L (22.0-26.0); Arterial MetHb 0.2 % (0.0-1.5); Arterial pCO2 34.2 mmhg (35-45); MODE VENT - CPAP; Site A-Line
[2017-08-08] MEDS ORDERED: POTASSIUM CHLORIDE 100 ML IVPB (10:30)
[2017-08-08] MEDS: CASPOFUNGIN 50 MG in SOD CHLORIDE 0.9% 250 ML IVPB (11:15)
[2017-08-08 12:41] LABS: ADD MAN DIFF? NO
[2017-08-08 12:48] LABS: WHITE BLOOD COUNT 22.6 10^3/ul (4.8-10.8)
[2017-08-08 12:48] LABS: ABNORMAL IP MESSAGE 1; BASOPHILS % 0.1 % (0.0-2.0); HEMATOCRIT 16.2 % (37.0-47.0); LYMPHOCYTES # 0.4 10^3/ul (0.8-2.9); LYMPHOCYTES % 1.7 % (15.0-51.0); MEAN PLATELET VOLUME 12.8 fl (7.4-10.4); MONOCYTE # 0.1 10^3/ul (0.3-0.9); MONOCYTES % 0.6 % (0.0-11.0); NEUTROPHIL # 21.9 10^3/ul (1.6-7.5); NUCLEATED RED BLOOD CELLS% 0.1 /100WBC (0.0-0.0); PLATELET COUNT 67 10^3/UL (140-415); RED CELL DISTRIBUTION WIDTH 13.1 % (11.5-14.5)
[2017-08-08 12:56] LABS: NEUTROPHILS % 96.9 % (39.0-77.0); POSITIVE DIFF @See below
[2017-08-08] MEDS: SOD CHLORIDE 0.45% 1,000 ML IV (14:20)
[2017-08-08] MEDS: POTASSIUM CHLORIDE 50 ML IVPB ×3 (14:24→18:18)
[2017-08-08 14:41] LABS: BAND NEUTROPHILS #M 6.7 10^3/ul (0.0-0.6); BAND NEUTROPHILS % (M) 30 % (0-4); LYMPHOCYTES #M 0.2 10^3/ul (0.8-2.9); LYMPHOCYTES % (M) 1 % (15-51); PLATELET ESTIMATE SIG DECREASED; SEG NEUT #M 17.1 10^3/ul (1.6-7.5); SEGMENTED NEUTROPHILS (M) % 69 % (39-77); SMUDGE%M 1 % (0-0)
[2017-08-08 15:16] LABS: IMMEDIATE SPIN CROSSMATCH 1 3
[2017-08-08] MEDS: FAT EMULSION 20% 250 ML IV (16:00)
[2017-08-08] MEDS: morphine 2 MG INJ IV (17:30)
[2017-08-08] MEDS: MEROPENEM 500MG/50 ML (PMX) 50 ML IVPB (21:47)
[2017-08-08] MEDS: ARTIFICIAL TEARS 15 ML OPH BOTH EYES (22:40)
[2017-08-08 23:12] LABS: HEMATOCRIT 25.4 % (37.0-47.0); HEMOGLOBIN 9.2 g/dl (12.0-16.0)
[2017-08-09] MEDS: morphine 2 MG INJ IV ×5 (00:40→23:41)
[2017-08-09] MEDS: INSULIN ASPART [NOVOLOG] 3 ML PEN SC ×6 (01:00→20:35)
[2017-08-09] MEDS: hydrALAzine 20 MG INJ IV (01:32)
[2017-08-09] MEDS: ACCU-CHEK XX (02:00)
[2017-08-09] MEDS: PROPOFOL 100 ML IV (02:34)
[2017-08-09] MEDS: DIGOXIN 500 MCG INJ IV (02:34)
[2017-08-09] MEDS: MEROPENEM 500MG/50 ML (PMX) 50 ML IVPB ×3 (05:49→20:14)
[2017-08-09] MEDS: PANTOPRAZOLE (EC) 40 MG TAB PO (05:57)
[2017-08-09 06:22] LABS: ABNORMAL IP MESSAGE 1; HEMOGLOBIN 9.5 g/dl (12.0-16.0); MEAN CORPUSCULAR HEMOGLOBIN 28.8 pg (29.0-33.0); MEAN CORPUSCULAR HGB CONC 36.5 g/dl (32.0-37.0); MEAN CORPUSCULAR VOLUME 78.8 fl (82.0-101.0); MEAN PLATELET VOLUME 13.7 fl (7.4-10.4); NUCLEATED RED BLOOD CELLS% 0.2 /100WBC (0.0-0.0); PLATELET COUNT 55 10^3/UL (140-415); RED CELL DISTRIBUTION WIDTH 14.5 % (11.5-14.5)
[2017-08-09 06:22] LABS: WHITE BLOOD COUNT 19.6 10^3/ul (4.8-10.8)
[2017-08-09 06:42] LABS: ALANINE AMINOTRANSFERASE 37 IU/L (13-69); ALBUMIN 2.2 g/dl (3.3-4.9); ALKALINE PHOSPHATASE 94 IU/L (42-121); ANION GAP 8 (8-16); ASPARTATE AMINO TRANSFERASE 22 IU/L (15-46); BILIRUBIN,INDIRECT 0.8 mg/dl (0-1.1); BILIRUBIN,TOTAL 2.2 mg/dl (0.2-1.3); BLOOD UREA NITROGEN 27 mg/dl (7-20); CARBON DIOXIDE 31 mmol/L (21-31); CHLORIDE 107 mmol/L (97-110); CREATININE 1.05 mg/dl (0.44-1.00); GLUCOSE 127 mg/dl (70-220); POTASSIUM 3.5 mmol/L (3.5-5.1); SODIUM 142 mmol/L (135-144); TOTAL PROTEIN 4.2 g/dl (6.1-8.1)
[2017-08-09 06:50] LABS: MAGNESIUM 1.8 mg/dl (1.7-2.5)
[2017-08-09 06:50] LABS: PHOSPHORUS 2.1 mg/dl (2.5-4.9)
[2017-08-09 06:58] LABS: ADD MAN DIFF? YES; POSITIVE DIFF @See below
[2017-08-09 08:07] LABS: ANISOCYTOSIS 2+ (0-0); BAND NEUTROPHILS #M 3.7 10^3/ul (0.0-0.6); BAND NEUTROPHILS % (M) 19 % (0-4); LYMPHOCYTES #M 0.1 10^3/ul (0.8-2.9); LYMPHOCYTES % (M) 1 % (15-51); MICROCYTOSIS 1+ (0-0); MONOCYTE #M 0.1 10^3/ul (0.3-0.9); MONOCYTES % (M) 1 % (0-11); PLATELET ESTIMATE DECREASED; REACTIVE LYMPHOCYTES #M 0.3 10^3/ul (0.0-0.0); REACTIVE LYMPHOCYTES% (M) 2 % (0-0); SEG NEUT #M 15.8 10^3/ul (1.6-7.5); SEGMENTED NEUTROPHILS (M) % 77 % (39-77); SMUDGE%M 11 % (0-0)
[2017-08-09] MEDS: ENOXAPARIN 30 MG/0.3 ML SYG SC (09:00)
[2017-08-09 09:03] LABS: AADO2 Arterial 73.3 mmHg (7.0-24.0); Allen Test ACCEPTAB; Arterial Base Excess 5.3 mmol/L (-3.0-3); Arterial COHb 0.3 % (0.0-3.0); Arterial Fraction of Oxyhgb 96.6 % (93.0-99.0); Arterial HCO3 28.7 mmol/L (22.0-26.0); Arterial MetHb 0.1 % (0.0-1.5); Arterial Total Hemglobin 10.2 g/dl (12.0-18.0); Arterial pCO2 37.3 mmhg (35-45); MODE VENT - AC; Site Right Radial
[2017-08-09] MEDS: ARTIFICIAL TEARS 15 ML OPH BOTH EYES ×4 (09:25→20:13)
[2017-08-09 12:22] LABS: AADO2 Arterial 62.1 mmHg (7.0-24.0); Arterial Base Excess 7.2 mmol/L (-3.0-3); Arterial Blood Gas Oxygen Sat 97.2 mmHG (95.0-100.0); Arterial COHb 0 % (0.0-3.0); Arterial Fraction of Oxyhgb 97.1 % (93.0-99.0); Arterial MetHb 0.1 % (0.0-1.5); Arterial Total Hemglobin 10.4 g/dl (12.0-18.0); Arterial pCO2 41.2 mmhg (35-45); Blood Gas PS 10; MODE VENT - CPAP; Site A-Line
[2017-08-09] MEDS: CASPOFUNGIN 50 MG in SOD CHLORIDE 0.9% 250 ML IVPB (12:23)
[2017-08-09] MEDS: POTASSIUM PHOSPHATE 20 MEQ in SOD CHLORIDE 0.9% 250 ML IVPB (13:33)
[2017-08-09] MEDS: TPN 1,000 ML IV (20:13)
[2017-08-10] MEDS: ACCU-CHEK XX (02:00)
[2017-08-10] MEDS: INSULIN ASPART [NOVOLOG] 3 ML PEN SC ×6 (03:40→21:03)
[2017-08-10] MEDS: morphine 2 MG INJ IV ×3 (03:41→20:14)
[2017-08-10 05:55] LABS: ABNORMAL IP MESSAGE 1; HEMATOCRIT 27.8 % (37.0-47.0); HEMOGLOBIN 9.8 g/dl (12.0-16.0); MEAN CORPUSCULAR HEMOGLOBIN 28.3 pg (29.0-33.0); MEAN CORPUSCULAR HGB CONC 35.3 g/dl (32.0-37.0); MEAN CORPUSCULAR VOLUME 80.3 fl (82.0-101.0); PLATELET COUNT 57 10^3/UL (140-415); RED BLOOD COUNT 3.46 10^6/ul (4.20-5.40); RED CELL DISTRIBUTION WIDTH 15.1 % (11.5-14.5)
[2017-08-10 05:55] LABS: WHITE BLOOD COUNT 15.5 10^3/ul (4.8-10.8)
[2017-08-10 06:00] LABS: ADD MAN DIFF? YES; POSITIVE DIFF @See below
[2017-08-10] MEDS: LANSOPRAZOLE 30 MG CAP GTB (06:00)
[2017-08-10] MEDS: MEROPENEM 500MG/50 ML (PMX) 50 ML IVPB ×3 (06:12→22:37)
[2017-08-10 06:28] LABS: ANION GAP 9 (8-16); BLOOD UREA NITROGEN 32 mg/dl (7-20); CALCIUM 7.7 mg/dl (8.4-10.2); CARBON DIOXIDE 33 mmol/L (21-31); CHLORIDE 106 mmol/L (97-110); CREATININE 0.89 mg/dl (0.44-1.00); GLUCOSE 150 mg/dl (70-220); POTASSIUM 3.2 mmol/L (3.5-5.1); SODIUM 145 mmol/L (135-144)
[2017-08-10 06:42] LABS: MAGNESIUM 1.5 mg/dl (1.7-2.5)
[2017-08-10 06:58] LABS: PLATELET COUNT 50 10^3/UL (140-440)
[2017-08-10] MEDS ORDERED: DILTIAZEM 25 MG INJ (07:04)
[2017-08-10] MEDS: DILTIAZEM 25 MG INJ IV (07:07)
[2017-08-10 07:17] LABS: FIBRIN SPLIT PRODUCT <10 ug/ml (<10)
[2017-08-10] MEDS: ARTIFICIAL TEARS 15 ML OPH BOTH EYES ×4 (08:30→20:58)
[2017-08-10 08:33] LABS: BAND NEUTROPHILS #M 3.4 10^3/ul (0.0-0.6); BAND NEUTROPHILS % (M) 22 % (0-4); LYMPHOCYTES #M 0.3 10^3/ul (0.8-2.9); LYMPHOCYTES % (M) 2 % (15-51); MONOCYTE #M 0.3 10^3/ul (0.3-0.9); MONOCYTES % (M) 2 % (0-11); PLATELET ESTIMATE DECREASED; POIKILOCYTOSIS 1+ (0-0); SEGMENTED NEUTROPHILS (M) % 74 % (39-77); SMUDGE%M 5 % (0-0)
[2017-08-10] MEDS: MAGNESIUM SULFATE 2 GM/50 ML 50 ML IVPB (09:06)
[2017-08-10 09:15] LABS: THROMBIN TIME 14.1 SEC (13.8-19.1)
[2017-08-10 09:35] LABS: PROTIME 13.1 Sec (11.9-14.9)
[2017-08-10 09:36] LABS: D-DIMER 6719.41 ng/ml (<460); INR 0.98
[2017-08-10] MEDS: POTASSIUM CHLORIDE 100 ML IVPB ×2 (10:31→12:37)
[2017-08-10] MEDS: CASPOFUNGIN 50 MG in SOD CHLORIDE 0.9% 250 ML IVPB (11:23)
[2017-08-10] MEDS: DILTIAZEM-D5W 125MG/125ML DRIP 125 ML IV (11:24)
[2017-08-10] MEDS: DIGOXIN 500 MCG INJ IV ×2 (12:38→17:40)
[2017-08-10 13:45] LABS: THYROID STIMULATING HORMONE 0.591 MIU/L (0.465-4.680)
[2017-08-10 18:09] LABS: LACTATE DEHYDROGENASE 670 IU/L (313-618)
[2017-08-10 18:22] LABS: TROPONIN-I 0.016 ng/ml (0.00-0.12)
[2017-08-10] MEDS: METOCLOPRAMIDE 10 MG INJ IV (20:14)
[2017-08-11 01:25] LABS: TROPONIN-I 0.014 ng/ml (0.00-0.12)
[2017-08-11] MEDS: INSULIN ASPART [NOVOLOG] 3 ML PEN SC ×6 (01:40→21:04)
[2017-08-11] MEDS: ACCU-CHEK XX (01:41)
[2017-08-11] MEDS: morphine 2 MG INJ IV ×3 (01:44→17:36)
[2017-08-11] MEDS: LANSOPRAZOLE 30 MG CAP GTB (05:38)
[2017-08-11] MEDS: MEROPENEM 500MG/50 ML (PMX) 50 ML IVPB ×3 (05:38→22:00)
[2017-08-11 06:42] LABS: ANION GAP 7 (8-16); BLOOD UREA NITROGEN 37 mg/dl (7-20); CALCIUM 7.8 mg/dl (8.4-10.2); CARBON DIOXIDE 34 mmol/L (21-31); CHLORIDE 106 mmol/L (97-110); CREATININE 0.73 mg/dl (0.44-1.00); GLUCOSE 169 mg/dl (70-220); POTASSIUM 3.4 mmol/L (3.5-5.1); SODIUM 144 mmol/L (135-144)
[2017-08-11 06:43] LABS: ABNORMAL IP MESSAGE 1; HEMATOCRIT 26.6 % (37.0-47.0); HEMOGLOBIN 9.6 g/dl (12.0-16.0); MEAN CORPUSCULAR HEMOGLOBIN 29.3 pg (29.0-33.0); MEAN CORPUSCULAR HGB CONC 36.1 g/dl (32.0-37.0); MEAN CORPUSCULAR VOLUME 81.1 fl (82.0-101.0); MEAN PLATELET VOLUME 13.7 fl (7.4-10.4); PLATELET COUNT 51 10^3/UL (140-415); RED BLOOD COUNT 3.28 10^6/ul (4.20-5.40); RED CELL DISTRIBUTION WIDTH 14.7 % (11.5-14.5)
[2017-08-11 06:43] LABS: WHITE BLOOD COUNT 16.3 10^3/ul (4.8-10.8)
[2017-08-11 06:46] LABS: ADD MAN DIFF? YES; POSITIVE DIFF @See below
[2017-08-11 06:48] LABS: TROPONIN-I 0.019 ng/ml (0.00-0.12)
[2017-08-11 07:02] LABS: PREALBUMIN 8.7 mg/dl (17.6-36.0)
[2017-08-11 08:22] LABS: ANISOCYTOSIS 1+ (0-0); BAND NEUTROPHILS #M 0.6 10^3/ul (0.0-0.6); BAND NEUTROPHILS % (M) 4 % (0-4); LYMPHOCYTES #M 0.4 10^3/ul (0.8-2.9); LYMPHOCYTES % (M) 3 % (15-51); MICROCYTOSIS 1+ (0-0); MONOCYTE #M 0.3 10^3/ul (0.3-0.9); MONOCYTES % (M) 2 % (0-11); PLATELET ESTIMATE DECREASED; POIKILOCYTOSIS 1+ (0-0); SEG NEUT #M 14.9 10^3/ul (1.6-7.5); SEGMENTED NEUTROPHILS (M) % 91 % (39-77); SMUDGE%M 1 % (0-0)
[2017-08-11] MEDS: ARTIFICIAL TEARS 15 ML OPH BOTH EYES ×4 (08:43→21:01)
[2017-08-11] MEDS: DILTIAZEM-D5W 125MG/125ML DRIP 125 ML IV (09:06)
[2017-08-11 10:38] LABS: PHOSPHORUS 1.8 mg/dl (2.5-4.9)
[2017-08-11 10:38] LABS: MAGNESIUM 1.6 mg/dl (1.7-2.5)
[2017-08-11] MEDS ORDERED: DIGOXIN 500 MCG INJ IV (10:46)
[2017-08-11] MEDS: METOPROLOL 5 MG INJ IV ×2 (10:49→16:35)
[2017-08-11] MEDS: DIGOXIN 500 MCG INJ IV (10:52)
[2017-08-11] MEDS: CASPOFUNGIN 50 MG in SOD CHLORIDE 0.9% 250 ML IVPB (11:15)
[2017-08-11] MEDS ORDERED: VANCOMYCIN IV PER PHARMACY XX (13:30)
[2017-08-11] MEDS: VANCOMYCIN 1 GM 250 ML IVPB (13:44)
[2017-08-11] MEDS: MAGNESIUM SULFATE 2 GM/50 ML 50 ML IVPB (16:34)
[2017-08-11] MEDS: FUROSEMIDE 40 MG INJ IV (16:35)
[2017-08-11] MEDS: ATENOLOL 25 MG TAB PO (21:07)
[2017-08-12] MEDS: morphine 2 MG INJ IV ×4 (01:36→21:38)
[2017-08-12] MEDS: INSULIN ASPART [NOVOLOG] 3 ML PEN SC ×6 (01:42→21:00)
[2017-08-12] MEDS: ACCU-CHEK XX ×2 (01:42→21:55)
[2017-08-12] MEDS: MEROPENEM 500MG/50 ML (PMX) 50 ML IVPB ×3 (05:50→22:59)
[2017-08-12] MEDS: LANSOPRAZOLE 30 MG CAP GTB (05:50)
[2017-08-12 05:58] LABS: ABNORMAL IP MESSAGE 1; HEMATOCRIT 27.4 % (37.0-47.0); HEMOGLOBIN 9.8 g/dl (12.0-16.0); MEAN CORPUSCULAR HEMOGLOBIN 29.5 pg (29.0-33.0); MEAN CORPUSCULAR HGB CONC 35.8 g/dl (32.0-37.0); MEAN CORPUSCULAR VOLUME 82.5 fl (82.0-101.0); RED BLOOD COUNT 3.32 10^6/ul (4.20-5.40); RED CELL DISTRIBUTION WIDTH 14.6 % (11.5-14.5)
[2017-08-12 05:58] LABS: WHITE BLOOD COUNT 15.7 10^3/ul (4.8-10.8)
[2017-08-12 06:17] LABS: PHOSPHORUS 2.1 mg/dl (2.5-4.9)
[2017-08-12 06:17] LABS: ANION GAP 6 (8-16); BLOOD UREA NITROGEN 42 mg/dl (7-20); CALCIUM 7.5 mg/dl (8.4-10.2); CARBON DIOXIDE 39 mmol/L (21-31); CHLORIDE 103 mmol/L (97-110); CREATININE 0.74 mg/dl (0.44-1.00); GLUCOSE 155 mg/dl (70-220); SODIUM 145 mmol/L (135-144)
[2017-08-12 06:52] LABS: PLATELET COUNT 78 10^3/UL (140-415); POSITIVE DIFF @See below
[2017-08-12 06:53] LABS: ADD MAN DIFF? YES
[2017-08-12] MEDS ORDERED: POTASSIUM CHLORIDE 50 ML IVPB (07:30)
[2017-08-12] MEDS: ARTIFICIAL TEARS 15 ML OPH BOTH EYES ×4 (08:39→21:39)
[2017-08-12] MEDS: FUROSEMIDE 40 MG INJ IV (08:39)
[2017-08-12] MEDS: ATENOLOL 25 MG TAB PO ×2 (08:39→21:57)
[2017-08-12 09:11] LABS: ANISOCYTOSIS 1+ (0-0); BAND NEUTROPHILS #M 2.1 10^3/ul (0.0-0.6); BAND NEUTROPHILS % (M) 14 % (0-4); LYMPHOCYTES #M 0.6 10^3/ul (0.8-2.9); LYMPHOCYTES % (M) 4 % (15-51); MICROCYTOSIS 1+ (0-0); MONOCYTE #M 0.4 10^3/ul (0.3-0.9); MONOCYTES % (M) 3 % (0-11); MYELOCYTES #M 0.1 10^3/ul (0.0-0.0); MYELOCYTES % (M) 1 % (0-0); PLATELET ESTIMATE DECREASED; POLYCHROMASIA 3+ (0-0); REACTIVE LYMPHOCYTES #M 0.1 10^3/ul (0.0-0.0); REACTIVE LYMPHOCYTES% (M) 1 % (0-0); SEG NEUT #M 12.4 10^3/ul (1.6-7.5); SEGMENTED NEUTROPHILS (M) % 77 % (39-77); SMUDGE%M 9 % (0-0)
[2017-08-12] MEDS: VANCOMYCIN 750 MG in DEXTROSE 5% 150 ML IVPB (10:15)
[2017-08-12 10:25] LABS: AADO2 Arterial 90.3 mmHg (7.0-24.0); Allen Test ACCEPTAB; Arterial Base Excess 11.1 mmol/L (-3.0-3); Arterial Blood Gas Oxygen Sat 97.3 mmHG (95.0-100.0); Arterial COHb 0.2 % (0.0-3.0); Arterial Fraction of Oxyhgb 96.8 % (93.0-99.0); Arterial HCO3 34.9 mmol/L (22.0-26.0); Arterial MetHb 0.3 % (0.0-1.5); Arterial Total Hemglobin 11.5 g/dl (12.0-18.0); Arterial pCO2 42.8 mmhg (35-45); MODE NASAL CANNULA; Site Right Radial
[2017-08-12] MEDS: CASPOFUNGIN 50 MG in SOD CHLORIDE 0.9% 250 ML IVPB (11:29)
[2017-08-12] MEDS: POTASSIUM PHOSPHATE 30 MM in SOD CHLORIDE 0.9% 250 ML IVPB (11:29)
[2017-08-12] MEDS ORDERED: VANCOMYCIN 500MG/NS (PMX) 100 ML IVPB (16:00)
[2017-08-12 16:27] LABS: ANION GAP 8 (8-16); BLOOD UREA NITROGEN 42 mg/dl (7-20); CALCIUM 7.1 mg/dl (8.4-10.2); CARBON DIOXIDE 37 mmol/L (21-31); CHLORIDE 102 mmol/L (97-110); CREATININE 0.71 mg/dl (0.44-1.00); GLUCOSE 130 mg/dl (70-220); POTASSIUM 3.3 mmol/L (3.5-5.1); SODIUM 144 mmol/L (135-144)
[2017-08-12] MEDS: POTASSIUM CHLORIDE 30 MEQ in DEXTROSE 5% 250 ML IVPB (21:32)
[2017-08-12] MEDS ORDERED: VITAMIN A & D 5 GM OINT PACKET TOP (21:45)
[2017-08-13] MEDS: INSULIN ASPART [NOVOLOG] 3 ML PEN SC ×6 (01:21→20:42)
[2017-08-13] MEDS: morphine 2 MG INJ IV ×2 (01:52→23:17)
[2017-08-13] MEDS: LANSOPRAZOLE 30 MG CAP GTB (05:47)
[2017-08-13] MEDS: MEROPENEM 500MG/50 ML (PMX) 50 ML IVPB ×3 (05:47→21:49)
[2017-08-13 07:15] LABS: WHITE BLOOD COUNT 16.1 10^3/ul (4.8-10.8)
[2017-08-13 07:15] LABS: ABNORMAL IP MESSAGE 1; HEMATOCRIT 27.4 % (37.0-47.0); HEMOGLOBIN 9.4 g/dl (12.0-16.0); MEAN CORPUSCULAR HEMOGLOBIN 28.6 pg (29.0-33.0); MEAN CORPUSCULAR HGB CONC 34.3 g/dl (32.0-37.0); MEAN CORPUSCULAR VOLUME 83.3 fl (82.0-101.0); MEAN PLATELET VOLUME 12.7 fl (7.4-10.4); PLATELET COUNT 133 10^3/UL (140-415); RED BLOOD COUNT 3.29 10^6/ul (4.20-5.40); RED CELL DISTRIBUTION WIDTH 14.6 % (11.5-14.5)
[2017-08-13 07:20] LABS: ADD MAN DIFF? YES; POSITIVE DIFF @See below
[2017-08-13 07:40] LABS: ANION GAP 6 (8-16); BLOOD UREA NITROGEN 43 mg/dl (7-20); CALCIUM 7.4 mg/dl (8.4-10.2); CARBON DIOXIDE 38 mmol/L (21-31); CHLORIDE 104 mmol/L (97-110); CREATININE 0.71 mg/dl (0.44-1.00); GLUCOSE 134 mg/dl (70-220); POTASSIUM 3.7 mmol/L (3.5-5.1); SODIUM 144 mmol/L (135-144)
[2017-08-13 07:53] LABS: MAGNESIUM 1.6 mg/dl (1.7-2.5)
[2017-08-13 07:53] LABS: PHOSPHORUS 2.7 mg/dl (2.5-4.9)
[2017-08-13] MEDS: ATENOLOL 25 MG TAB PO ×2 (08:26→20:43)
[2017-08-13] MEDS: ARTIFICIAL TEARS 15 ML OPH BOTH EYES ×4 (08:27→20:43)
[2017-08-13] MEDS: FUROSEMIDE 40 MG INJ IV (08:27)
[2017-08-13] MEDS: CLONIDINE 0.1 MG/24 HR PATCH TRANSDERM (09:30)
[2017-08-13 09:49] LABS: ANISOCYTOSIS 1+ (0-0); EOSINOPHILS % (M) 1 % (0-7); GIANT THROMBO% (M) 3 % (0-0); LYMPHOCYTES #M 0.4 10^3/ul (0.8-2.9); LYMPHOCYTES % (M) 3 % (15-51); MICROCYTOSIS 1+ (0-0); MONOCYTE #M 0.1 10^3/ul (0.3-0.9); MONOCYTES % (M) 1 % (0-11); MYELOCYTES #M 0.1 10^3/ul (0.0-0.0); MYELOCYTES % (M) 1 % (0-0); PLATELET ESTIMATE DECREASED; POIKILOCYTOSIS 1+ (0-0); POLYCHROMASIA 1+ (0-0); REACTIVE LYMPHOCYTES #M 0.3 10^3/ul (0.0-0.0); REACTIVE LYMPHOCYTES% (M) 2 % (0-0); SEGMENTED NEUTROPHILS (M) % 92 % (39-77); SMUDGE%M 2 % (0-0)
[2017-08-13] MEDS: VANCOMYCIN 750 MG in DEXTROSE 5% 150 ML IVPB (10:24)
[2017-08-13] MEDS: CASPOFUNGIN 50 MG in SOD CHLORIDE 0.9% 250 ML IVPB (13:46)
[2017-08-13] MEDS: MAGNESIUM SULFATE 2 GM/50 ML 50 ML IVPB (18:13)
[2017-08-14] MEDS: INSULIN ASPART [NOVOLOG] 3 ML PEN SC ×6 (01:00→20:26)
[2017-08-14] MEDS: ACCU-CHEK XX (02:00)
[2017-08-14] MEDS: MEROPENEM 500MG/50 ML (PMX) 50 ML IVPB ×3 (05:38→22:03)
[2017-08-14] MEDS: morphine 2 MG INJ IV (05:39)
[2017-08-14] MEDS: LANSOPRAZOLE 30 MG CAP GTB (05:59)
[2017-08-14 06:50] LABS: WHITE BLOOD COUNT 17.3 10^3/ul (4.8-10.8)
[2017-08-14 06:50] LABS: HEMOGLOBIN 9.3 g/dl (12.0-16.0); MEAN CORPUSCULAR HEMOGLOBIN 28.7 pg (29.0-33.0); MEAN CORPUSCULAR HGB CONC 34.4 g/dl (32.0-37.0); MEAN CORPUSCULAR VOLUME 83.3 fl (82.0-101.0); PLATELET COUNT 218 10^3/UL (140-415); RED BLOOD COUNT 3.24 10^6/ul (4.20-5.40)
[2017-08-14 06:59] LABS: ADD MAN DIFF? YES; POSITIVE DIFF @See below
[2017-08-14 07:23] LABS: PHOSPHORUS 2.5 mg/dl (2.5-4.9)
[2017-08-14 07:39] LABS: ANION GAP 9 (8-16); BLOOD UREA NITROGEN 41 mg/dl (7-20); CALCIUM 7.3 mg/dl (8.4-10.2); CARBON DIOXIDE 37 mmol/L (21-31); CHLORIDE 104 mmol/L (97-110); CREATININE 0.72 mg/dl (0.44-1.00); GLUCOSE 157 mg/dl (70-220); SODIUM 147 mmol/L (135-144)
[2017-08-14 08:32] LABS: ANISOCYTOSIS 1+ (0-0); BAND NEUTROPHILS #M 1.2 10^3/ul (0.0-0.6); BAND NEUTROPHILS % (M) 7 % (0-4); EOSINOPHILS % (M) 1 % (0-7); GIANT THROMBO% (M) 1 % (0-0); LYMPHOCYTES #M 1.5 10^3/ul (0.8-2.9); LYMPHOCYTES % (M) 9 % (15-51); MONOCYTE #M 0.1 10^3/ul (0.3-0.9); MONOCYTES % (M) 1 % (0-11); MYELOCYTES #M 0.1 10^3/ul (0.0-0.0); MYELOCYTES % (M) 1 % (0-0); PLATELET ESTIMATE NORMAL; POLYCHROMASIA 1+ (0-0); REACTIVE LYMPHOCYTES #M 0.3 10^3/ul (0.0-0.0); REACTIVE LYMPHOCYTES% (M) 2 % (0-0); SEG NEUT #M 13.9 10^3/ul (1.6-7.5); SEGMENTED NEUTROPHILS (M) % 79 % (39-77); SMUDGE%M 12 % (0-0); TARGET CELLS 1+ (0-0)
[2017-08-14] MEDS: ATENOLOL 25 MG TAB PO ×2 (08:34→20:22)
[2017-08-14] MEDS: ARTIFICIAL TEARS 15 ML OPH BOTH EYES ×4 (08:35→20:22)
[2017-08-14 10:18] LABS: VANCOMYCIN,TROUGH 7.5 ug/ml (10.0-20.0)
[2017-08-14] MEDS: VANCOMYCIN 750 MG in DEXTROSE 5% 150 ML IVPB (10:43)
[2017-08-14] MEDS: CASPOFUNGIN 50 MG in SOD CHLORIDE 0.9% 250 ML IVPB (12:21)
[2017-08-14] MEDS: VANCOMYCIN 500MG/NS (PMX) 100 ML IVPB (22:25)
[2017-08-15] MEDS: INSULIN ASPART [NOVOLOG] 3 ML PEN SC ×5 (01:37→17:00)
[2017-08-15] MEDS: ACCU-CHEK XX (02:00)
[2017-08-15] MEDS: LANSOPRAZOLE 30 MG CAP GTB (05:30)
[2017-08-15] MEDS: MEROPENEM 500MG/50 ML (PMX) 50 ML IVPB ×2 (05:30→13:56)
[2017-08-15 06:09] LABS: ADD MAN DIFF? NO
[2017-08-15 06:20] LABS: BASOPHILS % 0.1 % (0.0-2.0); EOSINOPHILS # 0.1 10^3/ul (0.0-0.5); EOSINOPHILS % 0.3 % (0.0-7.0); HEMATOCRIT 26.6 % (37.0-47.0); HEMOGLOBIN 9.1 g/dl (12.0-16.0); LYMPHOCYTES # 0.6 10^3/ul (0.8-2.9); LYMPHOCYTES % 4.3 % (15.0-51.0); MEAN CORPUSCULAR HEMOGLOBIN 29.2 pg (29.0-33.0); MEAN CORPUSCULAR HGB CONC 34.2 g/dl (32.0-37.0); MEAN CORPUSCULAR VOLUME 85.3 fl (82.0-101.0); MEAN PLATELET VOLUME 12.3 fl (7.4-10.4); MONOCYTE # 0.4 10^3/ul (0.3-0.9); MONOCYTES % 2.6 % (0.0-11.0); NEUTROPHIL # 13.4 10^3/ul (1.6-7.5); NEUTROPHILS % 90.7 % (39.0-77.0); PLATELET COUNT 264 10^3/UL (140-415); RED BLOOD COUNT 3.12 10^6/ul (4.20-5.40); RED CELL DISTRIBUTION WIDTH 15.2 % (11.5-14.5)
[2017-08-15 06:20] LABS: WHITE BLOOD COUNT 14.8 10^3/ul (4.8-10.8)
[2017-08-15 06:33] LABS: ANION GAP 6 (8-16); BLOOD UREA NITROGEN 39 mg/dl (7-20); CALCIUM 7.4 mg/dl (8.4-10.2); CARBON DIOXIDE 36 mmol/L (21-31); CHLORIDE 107 mmol/L (97-110); CREATININE 0.65 mg/dl (0.44-1.00); GLUCOSE 119 mg/dl (70-220); SODIUM 146 mmol/L (135-144)
[2017-08-15 06:35] LABS: MAGNESIUM 1.9 mg/dl (1.7-2.5)
[2017-08-15 06:35] LABS: PHOSPHORUS 2.8 mg/dl (2.5-4.9)
[2017-08-15] MEDS: ATENOLOL 25 MG TAB PO (08:39)
[2017-08-15] MEDS: ARTIFICIAL TEARS 15 ML OPH BOTH EYES ×3 (08:39→17:00)
[2017-08-15] MEDS: VANCOMYCIN 500MG/NS (PMX) 100 ML IVPB (10:12)
[2017-08-15] MEDS: CASPOFUNGIN 50 MG in SOD CHLORIDE 0.9% 250 ML IVPB (12:21)
[2017-08-15] MEDS: METOCLOPRAMIDE 10 MG INJ IV (14:31)
[2017-08-15] MEDS: BALSAM PERU/CASTOR OIL 60 GM TUBE TOP (14:32)
[2017-08-15] MEDS: POTASSIUM CHLORIDE 100 ML IVPB ×2 (14:40→17:02)
== END 2017-08-15 22:45 | disposition expired | DRG 329 ==
LOC: MS4 08-12 16:56 → ICU 08-05 22:00 → E/R 08:36 → TEL 08-12 16:58 → MS1 13:05
PROC: 0DBM8ZX Excision of Descending Colon, Via Natural or Artificial Opening Endoscopic, Diagnostic (ICD-10-PCS; 2017-08-05 14:00)
PROC: 0DBB0ZZ Excision of Ileum, Open Approach (ICD-10-PCS; principal; 2017-08-05 14:46)
PROC: 0D1B0Z4 Bypass Ileum to Cutaneous, Open Approach (ICD-10-PCS; 2017-08-05 14:46)
PROC: 5A1945Z Respiratory Ventilation, 24-96 Consecutive Hours (ICD-10-PCS; 2017-08-05 14:46)
PROC: 0DTK0ZZ Resection of Ascending Colon, Open Approach (ICD-10-PCS; 2017-08-05 14:46)
PROC: 0DTL0ZZ Resection of Transverse Colon, Open Approach (ICD-10-PCS; 2017-08-05 14:46)
PROC: 0DTM0ZZ Resection of Descending Colon, Open Approach (ICD-10-PCS; 2017-08-05 14:46)
PROC: 0DBN0ZZ Excision of Sigmoid Colon, Open Approach (ICD-10-PCS; 2017-08-05 14:46)
PROC: 0BH17EZ Insertion of Endotracheal Airway into Trachea, Via Natural or Artificial Opening (ICD-10-PCS; 2017-08-05 14:46)
PROC: 30233N1 Transfusion of Nonautologous Red Blood Cells into Peripheral Vein, Percutaneous Approach (ICD-10-PCS; 2017-08-05 14:46)
DX: C18.5 Malignant neoplasm of splenic flexure (principal); A41.9 Sepsis, unspecified organism; R65.21 Severe sepsis with septic shock; J96.90 Respiratory failure, unspecified, unspecified whether with hypoxia or hypercapnia; N17.0 Acute kidney failure with tubular necrosis; K63.1 Perforation of intestine (nontraumatic); G92 Toxic encephalopathy; J90 Pleural effusion, not elsewhere classified; J18.9 Pneumonia, unspecified organism; K35.3 Acute appendicitis with localized peritonitis; K56.699 Other intestinal obstruction unspecified as to partial versus complete obstruction; E44.0 Moderate protein-calorie malnutrition; J98.11 Atelectasis; Z68.1 Body mass index [BMI] 19.9 or less, adult; I82.622 Acute embolism and thrombosis of deep veins of left upper extremity; E87.0 Hyperosmolality and hypernatremia; D69.6 Thrombocytopenia, unspecified; J98.2 Interstitial emphysema; I48.91 Unspecified atrial fibrillation; Z66 Do not resuscitate; E88.09 Other disorders of plasma-protein metabolism, not elsewhere classified; E11.9 Type 2 diabetes mellitus without complications; E87.6 Hypokalemia; E78.5 Hyperlipidemia, unspecified; F03.90 Unspecified dementia, unspecified severity, without behavioral disturbance, psychotic disturbance, mood disturbance, and anxiety; I69.220 Aphasia following other nontraumatic intracranial hemorrhage; I70.0 Atherosclerosis of aorta; I10 Essential (primary) hypertension; K63.5 Polyp of colon; I46.8 Cardiac arrest due to other underlying condition
CPT/HCPCS: 36415; 36430; 36600; 70450; 71045; 71250; 74018; 74176; 74250; 80048; 80053; 80202; 81001; 82378; 82803; 82962; 83036; 83605; 83615; 83690; 83735; 84100; 84134; 84443; 84478; 84484; 85014; 85018; 85025; 85049; 85362; 85378; 85384; 85610; 85670; 85730; 86850; 86900; 86901; 86920; 87040; 87081; 87086; 88305; 88307; 92526; 92610; 93005; 93306; 93971; 94002; 94003; 94770; 96374; 99285-25; J1940